=== PATIENT | male | born 1980 | race Asian ===

== ENCOUNTER 2016-10-21 18:12 | Emergency (ER) | payer OTHER ==
[~2016-10-21] VITALS: Ht 170.2 cm; Wt 85.4 kg
[2016-10-21 18:21] VITALS: BP 118/79
[2016-10-21] MEDS ORDERED: KETOROLAC 30 MG/1 ML IM ONE (19:00)
[2016-10-21] MEDS ORDERED: KETOROLAC 30 MG/1 ML ONE (19:22)
== END 2016-10-21 20:24 | disposition home or self-care (01) ==
LOC: ED 20:18
DX: S16.1XXA Strain of muscle, fascia and tendon at neck level, initial encounter (principal); S49.91XA Unspecified injury of right shoulder and upper arm, initial encounter; S49.92XA Unspecified injury of left shoulder and upper arm, initial encounter; V89.2XXA Person injured in unspecified motor-vehicle accident, traffic, initial encounter; Y93.89 Activity, other specified; Y99.8 Other external cause status; Y92.410 Unspecified street and highway as the place of occurrence of the external cause
CPT/HCPCS: 72020; 72050; 73564; 96372; 99284; J1885